=== PATIENT | male | born 1980 | race Two or more races ===

== ENCOUNTER 2016-11-12 13:55 | Emergency (ER) | payer BC ==
[~2016-11-12] VITALS: Ht 177.8 cm; Wt 67.0 kg
[2016-11-12] MEDS ORDERED: SODIUM CHLORIDE FLUSH 10ML SYR IVF ONE (14:30)
[2016-11-12] MEDS ORDERED: LORazepam 2 MG/ML, 1ML IVP ONE (14:30)
[2016-11-12] MEDS ORDERED: SODIUM CHLORIDE 0.9% 1,000ML IVBOLUS ONE (14:30)
[2016-11-12 14:42] LABS: BLOOD UREA NITROGEN 13 mg/dL (7-18)
[2016-11-12] MEDS ORDERED: LORazepam 2 MG/ML, 1ML ONE (15:13)
[2016-11-12] MEDS ORDERED: ACET325T14 PO (15:25)
[2016-11-12] MEDS ORDERED: POTASSIUM CHLORIDE 20 MEQ TAB.ER.PRT PO ONE (15:30)
[2016-11-12] MEDS ORDERED: POTASSIUM CHLORIDE 20 MEQ TAB.ER.PRT ONE (15:50)
[2016-11-12 15:55] VITALS: BP 139/83
== END 2016-11-12 16:17 | disposition home or self-care (01) ==
LOC: ED 15:01
DX: F45.8 Other somatoform disorders (principal); E87.6 Hypokalemia
CPT/HCPCS: 36415; 71020; 80048; 82040; 85025; 93005; 96361; 96374; 99285; J2060; J7030